=== PATIENT | female | born 1935 | race Caucasian/White ===

== ENCOUNTER 2022-09-29 09:27 | Inpatient (IN) | payer MEDICARE, SELFPAY ==
[2022-09-29] VITALS (12 sets, daily range): BP systolic 124–166; BP diastolic 75–108; PULSE 80–99; RESP 16–26; TEMP 36.9–38.1; O2SAT 93–100; BMI 24.7
--- NOTE | ~2022-09-29 | CT_ITS ---
EXAMINATION: CTA brain carotid DATE: 09/30/2022 16:45 INDICATION: Confusion and weakness TECHNIQUE: Computed tomographic angiography (CTA) of the head was performed without and with 100 mL O mnipaque-350 intravenous contrast. CTA of the neck was performed with intravenous contrast. The dose- length product was 1640.65 mGy-cm. Maximum intensity projection and volume rendered 3D-reconstruction s were created by the technologist on a separate workstation. Automated exposure control and iterativ e reconstruction technique were employed. COMPARISON: None. FINDINGS: HEAD CTA: There is no acute intraparenchymal hemorrhage. No evidence of mass lesion. No evidence of a cute infarction. There are areas of prior infarction in the right frontal, temporal, and parietal lob es. There is mild periventricular and subcortical hypodensity probably related to small vessel ischem ic disease. There is mild prominence of the sulci and ventricles related to cerebral atrophy. Intracr anial calcified cerebral atherosclerosis is noted. There are no extra-axial collections. There is no mass effect or midline shift. Changes in the globes are likely from ocular lens surgery. The visualiz ed sinuses and mastoid air cells are well aerated. There is no significant stenosis of the basilar artery or posterior cerebral arteries. There is no si gnificant stenosis of the intracranial internal carotid arteries or the anterior or left middle cereb ral arteries. There is mild to moderate stenosis of the right middle cerebral artery which may relate to prior infarct. The anterior communicating artery is normal. The right posterior communicating art [place] is hypoplastic. There is no aneurysm. NECK CTA: The thyroid gland is unremarkable. The submandibular and parotid glands are symmetric. Ther e is no lymphadenopathy. There are no masses identified. The airway is unremarkable. There is mild ce rvical spondylosis. 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 There is 0% stenosis of the proximal right internal carotid artery relative to normal distal artery l umen diameter (NASCET criteria). There is 0% stenosis of the proximal left internal carotid artery re lative to normal distal artery lumen diameter. IMPRESSION: 1. Areas of prior right-sided infarction without acute intracranial abnormality. Mild to moderate kassidy nosis of the right middle cerebral artery which may relate to prior infarct. 2. 0% stenosis of the proximal right internal carotid artery relative to normal distal artery lumen d iameter (NASCET criteria). 3. 0% stenosis of the proximal left internal carotid artery relative to normal distal artery lumen di ameter. 4. 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 Reviewed, dictated and finalized at location A. IMPRESSION: 1. Areas of prior right-sided infarction without acute intracranial abnormality . Mild to moderate stenosis of the right middle cerebral artery which may relat e to prior infarct. 2. 0% stenosis of the proximal right internal carotid artery relative to normal distal artery lumen diameter (NASCET criteria). 3. 0% stenosis of the proximal left internal carotid artery relative to normal distal artery lumen diameter. 4. 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
--- NOTE | ~2022-09-29 | XR_ITS ---
EXAMINATION: XR chest 1V portable INDICATION: Fever, COVID 19 TECHNIQUE: Portable AP chest at 1018 hours COMPARISON: None available FINDINGS: There are minimal airspace opacities of the lung bases. No pleural effusion or pneumothorax . The cardiomediastinal silhouette is normal. A cardiac monitoring device projects over the left hear t border. IMPRESSION: 1. Minimal bibasilar airspace opacity, consistent with atelectasis versus pneumonia. Reviewed, dictated and finalized at location L. IMPRESSION: 1. Minimal bibasilar airspace opacity, consistent with atelectasis versus pneum onia.
--- NOTE | 2022-09-29 09:32 | ECG_ITS ---
Measurements Intervals [place] Rate: 82 P: 27 UT: 163 QRS: -6 QRSD: 86 T: 29 QT: 395 QTc: 463 Interpretive Statements SINUS RHYTHM POSSIBLE LEFT ATRIAL ENLARGEMENT LEFT VENTRICULAR HYPERTROPHY AND ST-T CHANGE BORDERLINE ECG NO PREVIOUS ECG AVAILABLE FOR COMPARISON Electronically Signed On 09-29-2022 10:16:52 CDT by Chad Saldivar D.O.
--- NOTE | 2022-09-29 09:35 | ED.FEVER ---
HPI - Fever General Chief Complaint: Fever Stated Complaint: fever/ covid+ History of Present Illness HPI Narrative: Patient is an 87-year-old female presenting with a fever. Patient states that she and her recently moved into an assisted living facility. States that she had a fever last night so they tested her for COVID which came back positive. This morning and ambulance showed up and brought her here but she is unsure why. States that someone at the assisted living facility must of called. She denies any complaints. No headache, numbness or weakness, chest pain, lightheadedness, shortness of breath, cough, abdominal pain, nausea or vomiting, diarrhea, leg swelling, dysuria. States that she feels like she is in her normal state of health. Related Data Home Medications Medication Instructions Recorded Confirmed acetaminophen 325 mg capsule 650 mg PO Q4HWA PRN Pain 09/29/22 10/01/22 (Tylenol) amlodipine 2.5 mg tablet 2.5 mg PO DAILY 09/29/22 10/01/22 aspirin 81 mg capsule,delayed 81 mg PO DAILY 09/29/22 10/01/22 release atorvastatin 40 mg tablet 40 mg PO HS 09/29/22 10/01/22 cholecalciferol (vitamin D3) 50 1 mcg PO DAILY 09/29/22 10/01/22 mcg (2,000 unit) tablet citalopram 20 mg tablet 20 mg PO DAILY 09/29/22 10/01/22 clopidogrel 75 mg tablet (Plavix) 75 mg PO DAILY 09/29/22 10/01/22 fluorometholone 0.1 % eye 1 drp EACH EYE DAILY 09/29/22 10/01/22 drops,suspension hydralazine 10 mg tablet 10 mg PO PRN 09/29/22 10/01/22 levothyroxine 100 mcg tablet 100 mcg PO DAILY 09/30/22 10/01/22 lisinopril 10 mg tablet 10 mg PO DAILY 09/30/22 10/01/22 metoprolol tartrate 25 mg tablet 25 mg PO BID 09/30/22 10/01/22 ropinirole 0.25 mg tablet 0.25 mg PO DAILY 09/30/22 10/01/22 Allergies Allergy/AdvReac Type Severity Reaction Status Date / Time metronidazole [From Flagyl] Allergy Gastrointestinal Verified 09/29/22 09:39 Upset Review of Systems Review of Systems: All systems reviewed & are unremarkable except as noted in HPI and below PMFSH Past Medical History Medical History (Updated 10/21/22 @ 17:43 by Rosalinda Gavin MD) Depression with anxiety History of CVA (cerebrovascular accident) Hyperlipidemia Hypertension Hypothyroidism 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 with her . She has 3 children. 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 Lifelong nonsmoker. Code status full code Smoking status: Never smoker Alcohol intake: never Substance use: never Substance use type: does not use Lack of Transportation: No Lack of Food: Never True Current Housing: I Have Housing Concerned About Future Housing: No Difficulty Paying Gas/Electric Bills: No Difficulty Paying for Meds: No Currently Unemployed: No Education: High School Diploma/GED Difficulty w/ Childcare or Family Care: No Spiritual care concerns: No Exam Narrative: GENERAL: Elderly female sitting in bed, in no acute distress, pleasant and cooperative HEAD: Normocephalic, atraumatic. EYES: PERRLA and EOMI. ENT: Nares clear, no rhinorrhea or epistaxis. Mucous membranes moist. NECK: Supple. CHEST: Clear to auscultation. No respiratory distress. No wheezing or crackles appreciated HEART: Regular rate and rhythm. No murmur heard. Normal peripheral pulses. ABDOMEN: Soft, nontender, nondistended EXTREMITIES: Normal range of motion. No edema. SKIN: Warm, dry, no rash. NEURO: No focal deficits. Alert and oriented x3. PSYCH: Normal mood and affe
[2022-09-29] MEDS: SODIUM CHLORIDE 0.9% IV 1,000 ML 999 ML IV CONT (10:13)
[2022-09-29 10:20] LABS: Basophils Percent Auto 0.3 % (0.2-1.2); Eosinophils Percent Auto 0.5 % (0-4.4); Hemoglobin 10.8 g/dL (12.0-15.0); Immature Granulocyte Absolute 0.07 K/mm3 (0.00-0.031); Immature Granulocyte Percent A 1.9 % (0-0.5); Lymphocytes Absolute Auto 1.34 K/mm3 (0.9-3.2); Lymphocytes Percent Auto 35.8 % (18.3-44.2); Mean Corpuscular HGB Conc 32.7 g/dl (32-36); Mean Corpuscular Hemoglobin 29.3 pg (26-34); Mean Corpuscular Volume 89.4 fl (80-100); Monocytes Absolute Auto 0.5 K/mm3 (0.1-0.6); Monocytes Percent Auto 12.8 % (2.6-8.5); Neutrophils Absolute Auto 1.8 K/mm3 (1.3-6.7); Neutrophils Percent Auto 48.7 % (45.5-73.1); Platelet Count Result 178 k/mm3 (150-375); Red Blood Count 3.69 M/mm3 (4.2-5.4); White Blood Count 3.7 K/mm3 (4.5-10.0)
[2022-09-29 10:37] LABS: Anion Gap 3 mmol/L (8-16); Blood Urea Nitrogen 11 mg/dL (7-17); Calcium 8.5 mg/dL (8.4-10.2); Carbon Dioxide 30 mmol/L (22-30); Chloride 101 mmol/L (98-107); Estimated CRCL calculation 47 ml/min; Estimated Glomerular Filt Rate > 60; Glucose 101 mg/dL (65-110); Potassium 2.7 mmol/L (3.4-5.0); Sodium 134 mmol/L (137-145)
[2022-09-29] MEDS: POTASSIUM CHLORIDE 20 MEQ TABLET 40 MEQ PO (10:41)
[2022-09-29 11:00] LABS: Influenza A QL RT-PCR Negative (Negative); Influenza B QL RT-PCR Negative (Negative); SARS-CoV-2 RNA PCR Positive
[2022-09-29] MEDS: KCL 20 MEQ/SW 100 ML 100 ML 50 MEQ IVPB (11:09)
--- NOTE | 2022-09-29 13:39 | PC.NURSE ---
This RN spoke to An with [facility] and gave update/discussed POC of pt. Plan is for pt to return to NH following repeat BMP to re ck Potassium following PO intake and IV infusion of K.
[2022-09-29 15:23] LABS: Anion Gap 2 mmol/L (8-16); Blood Urea Nitrogen 10 mg/dL (7-17); Carbon Dioxide 31 mmol/L (22-30); Chloride 104 mmol/L (98-107); Estimated CRCL calculation 56 ml/min; Estimated Glomerular Filt Rate > 60; Glucose 96 mg/dL (65-110); Potassium 3.3 mmol/L (3.4-5.0); Sodium 137 mmol/L (137-145)
--- NOTE | 2022-09-29 17:21 | PC.NURSE ---
spoke to daughter [phone] (kyle) and gave update on pts mother status & POC - w/ pts permission
[2022-09-29] MEDS: ACETAMINOPHEN 500 MG TABLET 1000 MG PO (17:25)
--- NOTE | 2022-09-29 19:46 | ADMGEN ---
This patient, Fannie Vaz, was admitted to 3 [facility] Surg Room 302-01. Patient/family oriented to hospital policies and general routines including ID bracelet, bed and alarms, visiting hours, pain management, procedures, bathroom and other care routines, personal items, smoking policy, room service/diet, and visiting hours. Information on how to activate the Rapid Response Team has been discussed. Patient/Family are encouraged to report perceived risks to care and to ask questions if they do not understand what they are told or what they should do.
--- NOTE | 2022-09-29 20:34 | PM.IMHP ---
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 She had a fever last night and then tested positive for COVID. The patient has a history of CVA with left-sided affect causing the left upper extremity left lower extremity to be flaccid. The patient stated that somebody at this is still living facility called ambulance for her today. She denies any shortness of breath and is not on any oxygen. The patient feels weak. No complaints of chest pain or lightheadedness. The patient was going to be sent back home or back to the facility however the patient was not able to ambulate at that time and was too weak. H&H 10.8 and 33.0. Sodium was 134 now 137. Her potassium was 2.7 now 3.3. The patient was positive for COVID. Chest x-ray was read as minimal bibasilar airspace opacities consistent with atelectasis versus pneumonia. Patient was given IV fluids x1, potato and Tylenol in the emergency room. The patient typically takes potassium at home. The patient is being admitted to observation status on the date of service 09/29/2022. Review of Systems Review of Systems: All systems reviewed & are unremarkable except as noted in HPI and below Constitutional: Constitutional: Reports as per HPI and Reports no additional constitutional complaints Eyes: Eyes: Reports as per HPI and Reports no additional eye complaints ENT: Reports system reviewed and no additional complaints, except as documented and Reports Normal hearing present Cardiovascular: Cardiovascular: Reports no additional cardiovascular complaints Respiratory: Respiratory: Reports no additional respiratory complaints and Reports no additional respiratory complaints Gastrointestinal: Gastrointestinal: Reports as per HPI and Reports no additional gastrointestinal complaints Musculoskeletal: Musculoskeletal: Reports no additional musculoskeletal complaints Integumentary/Breasts: Skin/Breast: Reports system reviewed and no additional complaints, except as docu and Reports as per HPI Neurologic: Reports system reviewed and no additional complaints, except as documented, Reports as per HPI and Reports Normal hearing present Psychiatric: Psychiatric: Reports no additional psychiatric complaints and Reports as per HPI Endocrine: Endocrine: Reports no additional endocrine complaints Hematologic/Lymphatic: Hematologic/Lymphatic: Reports no additional hematologic/lymphatic complaints Allergic/Immunologic: Allergic/Immunologic: Reports no additional allergic/immunologic complaints [facility] Past Medical History Medical History (Updated 09/30/22 @ 01:11 by Ketty Doshi NP) Depression with anxiety History of CVA (cerebrovascular accident) Hyperlipidemia Hypertension Hypothyroidism 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 She has 3 children. 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 Lifelong nonsmoker. Code status full code Smoking status: Never smoker Alcohol intake: never Substance use: never Lack of Transportation: No Lack of Food: Never True Current Housing: I Have Housing Concerned About Future Housing: No Difficulty Paying Gas/Electric Bills: No Difficulty Paying for Meds: No Currently Unemployed: No Education: High School Diploma/GED Difficulty w/ Childcare or Family Care: No Spiritual care concerns: No Meds Home Medi
[2022-09-30] VITALS (8 sets, daily range): BP systolic 130–164; BP diastolic 68–95; PULSE 66–135; RESP 14–20; TEMP 36.5–37.4; O2SAT 91–96
[2022-09-30] MEDS: POTASSIUM CHLORIDE 20 MEQ PACKET (FOR LIQUID) PO (02:17)
[2022-09-30] MEDS: LEVOTHYROXINE SODIUM 100 MCG TABLET PO (06:20)
[2022-09-30 07:52] LABS: Basophils Percent Auto 0.2 % (0.2-1.2); Eosinophils Percent Auto 0.4 % (0-4.4); Hematocrit 36.3 % (37.0-47.0); Immature Granulocyte Absolute 0.19 K/mm3 (0.00-0.031); Immature Granulocyte Percent A 4.1 % (0-0.5); Lymphocytes Absolute Auto 0.92 K/mm3 (0.9-3.2); Lymphocytes Percent Auto 20.1 % (18.3-44.2); Mean Corpuscular HGB Conc 33.1 g/dl (32-36); Mean Corpuscular Hemoglobin 29.3 pg (26-34); Mean Corpuscular Volume 88.5 fl (80-100); Mean Platelet Volume 11.3 fl (7.4-10.4); Monocytes Absolute Auto 0.7 K/mm3 (0.1-0.6); Monocytes Percent Auto 14.4 % (2.6-8.5); Neutrophils Absolute Auto 2.8 K/mm3 (1.3-6.7); Neutrophils Percent Auto 60.8 % (45.5-73.1); Platelet Count Result 178 k/mm3 (150-375); White Blood Count 4.6 K/mm3 (4.5-10.0)
[2022-09-30 08:14] LABS: Alanine Aminotransferase 22 U/L (6-35); Alkaline Phosphatase 87 U/L (38-126); Anion Gap 9 mmol/L (8-16); Aspartate Amino Transferase 32 U/L (14-36); Blood Urea Nitrogen 9 mg/dL (7-17); Calcium 8.7 mg/dL (8.4-10.2); Carbon Dioxide 27 mmol/L (22-30); Chloride 98 mmol/L (98-107); Estimated CRCL calculation 56 ml/min; Estimated Glomerular Filt Rate > 60; Glucose 109 mg/dL (65-110); Lactate Dehydrogenase 224 U/L (120-246); Magnesium 1.7 mg/dL (1.6-2.3); Sodium 134 mmol/L (137-145)
--- NOTE | 2022-09-30 09:00 | P.PNIM_ITS ---
Progress Note: A&P Assessment and Plan (1) COVID-19: Code(s): U07.1 - COVID-19 Status: Acute Assessment and Plan: * Currently on room air * Complaints of weakness * Supportive care at this time. * PT OT has been ordered * Typically walks with a walker or cane. * Continue with Tylenol for fever or pain * Contact and droplet isolation (2) Hypertension: Code(s): I10 - Essential (primary) hypertension Status: Acute Assessment and Plan: * BP is 138/75 * Continue home amlodipine, hydralazine, lisinopril, metoprolol * Trend blood pressure * Adjust therapy as indicated (3) Hypothyroidism: Code(s): E03.9 - Hypothyroidism, unspecified Status: Acute Assessment and Plan: * TSH 5.960 T4 pending * Continue home levothyroxine 100mcg PO daily * Adjust therapy as indicated (4) Hypokalemia: Code(s): E87.6 - Hypokalemia Status: Acute Assessment and Plan: * K upon arrival is 2.7 * Currently 3.0 * Replace with IV and PO potassium * Continue to trend K * Adjust therapy as indicated (5) Hyperlipidemia: Code(s): E78.5 - Hyperlipidemia, unspecified Status: Acute Assessment and Plan: * Continue with atorvastatin (6) Depression with anxiety: Code(s): F41.8 - Other specified anxiety disorders Status: Acute Assessment and Plan: * Continue with Celexa (7) 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 * Patient typically walks with a cane or walker. * The patient has paralysis to her left upper and left lower extremity due to a past CVA. * Continue with aspirin and Plavix * Continue with atorvastatin (8) Acute metabolic encephalopathy: Code(s): G93.41 - Metabolic encephalopathy Status: Acute Assessment and Plan: * A&Ox1-2 * A&O x 4 at baseline * Weakness noted * Admits to visual hallucinations * Head CTA ordered * Continue to trend mental status * Mini mental status exam ordered Time Spent With Patient Time: 57 minutes Time with patient: Greater than 35 minutes Subjective Date/time seen: 09/30/22 09:00 Interval history: 09/30/22 0900 patient is lying in bed. Patient did state that she can walk. She also states she feels okay and that she feels like she always does. She stated that she also has been out of bed. She denies any chest pain, shortness a breath, nausea, vomiting, diarrhea or constipation. She does look to be a little weak and she is hallucinating a bed which probably is related to a delirium as she has not been home from what I understand for a while. Unsure of and unclear of her baseline. Will await for PT and OT to evaluate at this time. 09/29/22? 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 She had a fever last night and then tested positive for COVID.? The patient has a history of CVA with left-sided affect causing the left upp
--- NOTE | 2022-09-30 09:00 | PM.IMPN ---
Progress Note: A&P Assessment and Plan (1) COVID-19: Code(s): U07.1 - COVID-19 Status: Acute Assessment and Plan: Currently on room air Complaints of weakness Supportive care at this time. PT OT has been ordered Typically walks with a walker or cane. Continue with Tylenol for fever or pain Contact and droplet isolation (2) Hypertension: Code(s): I10 - Essential (primary) hypertension Status: Acute Assessment and Plan: BP is 138/75 Continue home amlodipine, hydralazine, lisinopril, metoprolol Trend blood pressure Adjust therapy as indicated (3) Hypothyroidism: Code(s): E03.9 - Hypothyroidism, unspecified Status: Acute Assessment and Plan: TSH 5.960 T4 pending Continue home levothyroxine 100mcg PO daily Adjust therapy as indicated (4) Hypokalemia: Code(s): E87.6 - Hypokalemia Status: Acute Assessment and Plan: K upon arrival is 2.7 Currently 3.0 Replace with IV and PO potassium Continue to trend K Adjust therapy as indicated (5) Hyperlipidemia: Code(s): E78.5 - Hyperlipidemia, unspecified Status: Acute Assessment and Plan: Continue with atorvastatin (6) Depression with anxiety: Code(s): F41.8 - Other specified anxiety disorders Status: Acute Assessment and Plan: Continue with Celexa (7) 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 Patient typically walks with a cane or walker. The patient has paralysis to her left upper and left lower extremity due to a past CVA. Continue with aspirin and Plavix Continue with atorvastatin (8) Acute metabolic encephalopathy: Code(s): G93.41 - Metabolic encephalopathy Status: Acute Assessment and Plan: A&Ox1-2 A&O x 4 at baseline Weakness noted Admits to visual hallucinations Head CTA ordered Continue to trend mental status Mini mental status exam ordered Time Spent With Patient Time: 57 minutes Time with patient: Greater than 35 minutes Subjective Date/time seen: 09/30/22 09:00 Interval history: 09/30/22 0900 patient is lying in bed. Patient did state that she can walk. She also states she feels okay and that she feels like she always does. She stated that she also has been out of bed. She denies any chest pain, shortness a breath, nausea, vomiting, diarrhea or constipation. She does look to be a little weak and she is hallucinating a bed which probably is related to a delirium as she has not been home from what I understand for a while. Unsure of and unclear of her baseline. Will await for PT and OT to evaluate at this time. 09/29/22? 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 She had a fever last night and then tested positive for COVID.? The patient has a history of CVA with left-sided affect causing the left upper extremity left lower extremity to be flaccid.? The patient stated that somebody at this is still living facility called ambulance for her today.? She denies any shortness of breath and is not on any oxygen.? The patient feels weak.? No complaints of chest pain or lightheadedness.? The patient was going to be sent back home or back to the facility however the patient was not able to ambulate at that time and was too weak.? H&H 10.8 and 33.0.? Sodium was 134 now 137.? Her potassium was 2.7 now 3.3.? The patient was positive for COVID.? Chest x-ray was read as minimal bibasilar airspace opacities consistent with atelectasis versus pneumonia.? Patient was given IV fluids x1, potato and Tyleno
[2022-09-30] MEDS: POTASSIUM CHLORIDE 20 MEQ TABLET 40 MEQ PO (09:16)
[2022-09-30] MEDS: POTASSIUM CHLORIDE INJ 40 MEQ in SODIUM CHLORIDE 0.9% IV 500 ML 130 MEQ IVPB (09:16)
[2022-09-30] MEDS: amLODIPine BESYLATE 2.5 MG TABLET PO (09:17)
[2022-09-30] MEDS: ASPIRIN 81 MG ENTERIC TABLET PO (09:17)
[2022-09-30] MEDS: rOPINIRole HCL 0.25 MG TABLET PO (09:17)
[2022-09-30] MEDS: FLUOROMETHOLONE 0.1% OP SUSP 5 ML BTL 1 DROP EACH EYE (09:17)
[2022-09-30] MEDS: METOPROLOL TARTRATE 25 MG TABLET PO ×2 (09:17→20:05)
[2022-09-30] MEDS: CLOPIDOGREL BISULFATE 75 MG TABLET PO (09:17)
[2022-09-30] MEDS: CHOLECALCIFEROL 1,000 UNITS TABLET 2000 UNITS PO (09:17)
[2022-09-30] MEDS: lisinopriL 10 MG TABLET PO (09:17)
[2022-09-30] MEDS: CITALOPRAM HYDROBROMIDE 20 MG TABLET PO (09:17)
[2022-09-30 15:28] LABS: Free T4 Free Thyroxine Reflex 1.23 ng/dL (0.78-2.19)
[2022-09-30 16:56] LABS: Total Triiodothyronine (T3) 0.75 NG/ML (0.97-1.69)
[2022-09-30] MEDS: ATORVASTATIN 40 MG TABLET PO (20:03)
[2022-10-01 04:00] VITALS: BP 146/71; PULSE 72; RESP 14; TEMP 36.5; O2SAT 92
[2022-10-01] MEDS: LEVOTHYROXINE SODIUM 100 MCG TABLET PO (06:17)
[2022-10-01 08:00] VITALS: BP 146/83; PULSE 78; RESP 20; TEMP 36.5; O2SAT 96
[2022-10-01 09:27] LABS: Basophils Percent Auto 0.2 % (0.2-1.2); Eosinophils Percent Auto 0.8 % (0-4.4); Hematocrit 33.2 % (37.0-47.0); Hemoglobin 10.6 g/dL (12.0-15.0); Immature Granulocyte Absolute 0.06 K/mm3 (0.00-0.031); Immature Granulocyte Percent A 1.3 % (0-0.5); Lymphocytes Percent Auto 25.2 % (18.3-44.2); Mean Corpuscular HGB Conc 31.9 g/dl (32-36); Mean Corpuscular Volume 87.8 fl (80-100); Mean Platelet Volume 11.3 fl (7.4-10.4); Monocytes Absolute Auto 0.9 K/mm3 (0.1-0.6); Monocytes Percent Auto 18.4 % (2.6-8.5); Neutrophils Absolute Auto 2.6 K/mm3 (1.3-6.7); Neutrophils Percent Auto 54.1 % (45.5-73.1); Platelet Count Result 180 k/mm3 (150-375); Red Blood Count 3.78 M/mm3 (4.2-5.4); Red Cell Distribution Width 14.1 % (11.5-14.5); White Blood Count 4.8 K/mm3 (4.5-10.0)
[2022-10-01] MEDS: CHOLECALCIFEROL 1,000 UNITS TABLET 2000 UNITS PO (09:36)
[2022-10-01] MEDS: rOPINIRole HCL 0.25 MG TABLET PO (09:36)
[2022-10-01 09:37] VITALS: PULSE 78
[2022-10-01] MEDS: lisinopriL 10 MG TABLET PO (09:37)
[2022-10-01] MEDS: CITALOPRAM HYDROBROMIDE 20 MG TABLET PO (09:37)
[2022-10-01] MEDS: amLODIPine BESYLATE 2.5 MG TABLET PO (09:37)
[2022-10-01] MEDS: ENOXAPARIN 40 MG/0.4 ML SYRINGE SUB-Q (09:37)
[2022-10-01] MEDS: CLOPIDOGREL BISULFATE 75 MG TABLET PO (09:37)
[2022-10-01] MEDS: ASPIRIN 81 MG ENTERIC TABLET PO (09:37)
[2022-10-01] MEDS: METOPROLOL TARTRATE 25 MG TABLET PO (09:37)
[2022-10-01] MEDS: FLUOROMETHOLONE 0.1% OP SUSP 5 ML BTL 1 DROP EACH EYE (09:37)
[2022-10-01 09:42] LABS: Alanine Aminotransferase 20 U/L (6-35); Albumin Level 3.5 g/dL (3.5-5.1); Alkaline Phosphatase 71 U/L (38-126); Anion Gap 6 mmol/L (8-16); Aspartate Amino Transferase 32 U/L (14-36); Bilirubin,Total 0.9 mg/dL (0.2-1.3); Blood Urea Nitrogen 14 mg/dL (7-17); Calcium 8.6 mg/dL (8.4-10.2); Carbon Dioxide 27 mmol/L (22-30); Chloride 101 mmol/L (98-107); Estimated CRCL calculation 47 ml/min; Estimated Glomerular Filt Rate > 60; Glucose 90 mg/dL (65-110); Potassium 3.4 mmol/L (3.4-5.0); Sodium 134 mmol/L (137-145)
--- NOTE | 2022-10-01 10:57 | P.DS_ITS ---
DS: Admitting Diagnosis Discharge Date 10/01/2022 1058 Admitting Diagnosis Increased weakness, COVID DS: Discharge Diagnosis Discharge Diagnosis (1) COVID-19: Code(s): U07.1 - COVID-19 Status: Acute Assessment and Plan: * Currently on room air * Complaints of weakness * Supportive care at this time. * PT OT has been ordered * Typically walks with a walker or cane. * Continue with Tylenol for fever or pain * Contact and droplet isolation (2) Hypertension: Code(s): I10 - Essential (primary) hypertension Status: Acute Assessment and Plan: * BP is 146/83 * Continue home amlodipine, hydralazine, lisinopril, metoprolol * Trend blood pressure * Adjust therapy as indicated (3) Hypothyroidism: Code(s): E03.9 - Hypothyroidism, unspecified Status: Acute Assessment and Plan: * TSH 5.960 T4 1.23 * Continue home levothyroxine 100mcg PO daily * Adjust therapy as indicated (4) Hypokalemia: Code(s): E87.6 - Hypokalemia Status: Acute Assessment and Plan: * K upon arrival is 2.7 * Currently 3.4 * Replace with IV and PO potassium * Continue to trend K * Adjust therapy as indicated (5) Hyperlipidemia: Code(s): E78.5 - Hyperlipidemia, unspecified Status: Acute Assessment and Plan: * Continue with atorvastatin (6) Depression with anxiety: Code(s): F41.8 - Other specified anxiety disorders Status: Acute Assessment and Plan: * Continue with Celexa (7) 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 * Patient typically walks with a cane or walker. * The patient has paralysis to her left upper and left lower extremity due to a past CVA. * Continue with aspirin and Plavix * Continue with atorvastatin (8) Acute metabolic encephalopathy: Code(s): G93.41 - Metabolic encephalopathy Status: Acute Assessment and Plan: * A&Ox1-2 * A&O x 4 at baseline * Weakness noted * Admits to visual hallucinations * Head CTA old infarts, 0% stenosis bilaterally * Continue to trend mental status * Mini mental status exam ordered DS: Summary Hospital Course Hospital Course: Patient is a 7-year-old female with a past medical history of CVA, hypertension, hypothyroidism, hyperlipidemia who presented to the ED with complaints of fever. Patient was tested for COVID and did test positive. Patient did not require any oxygen however it was noted that her potassium was 2.7 upon arrival. Patient was given replacement p.o. and IV currently potassium is 3.4 and has been given more potassium supplements. Patient currently remains stable on room air and denies any current chest pain, shortness a breath, nausea, vomiting, diarrhea or constipation. Patient did have notable hallucinations however appears to be more of a delirium. CT head and neck was negative for any acute abnormalities. Sodium is also been stable. Patient currently is stable for discharge at this time. P
--- NOTE | 2022-10-01 10:57 | PM.DS ---
DS: Admitting Diagnosis Discharge Date 10/01/2022 1058 Admitting Diagnosis Increased weakness, COVID DS: Discharge Diagnosis Discharge Diagnosis (1) COVID-19: Code(s): U07.1 - COVID-19 Status: Acute Assessment and Plan: Currently on room air Complaints of weakness Supportive care at this time. PT OT has been ordered Typically walks with a walker or cane. Continue with Tylenol for fever or pain Contact and droplet isolation (2) Hypertension: Code(s): I10 - Essential (primary) hypertension Status: Acute Assessment and Plan: BP is 146/83 Continue home amlodipine, hydralazine, lisinopril, metoprolol Trend blood pressure Adjust therapy as indicated (3) Hypothyroidism: Code(s): E03.9 - Hypothyroidism, unspecified Status: Acute Assessment and Plan: TSH 5.960 T4 1.23 Continue home levothyroxine 100mcg PO daily Adjust therapy as indicated (4) Hypokalemia: Code(s): E87.6 - Hypokalemia Status: Acute Assessment and Plan: K upon arrival is 2.7 Currently 3.4 Replace with IV and PO potassium Continue to trend K Adjust therapy as indicated (5) Hyperlipidemia: Code(s): E78.5 - Hyperlipidemia, unspecified Status: Acute Assessment and Plan: Continue with atorvastatin (6) Depression with anxiety: Code(s): F41.8 - Other specified anxiety disorders Status: Acute Assessment and Plan: Continue with Celexa (7) 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 Patient typically walks with a cane or walker. The patient has paralysis to her left upper and left lower extremity due to a past CVA. Continue with aspirin and Plavix Continue with atorvastatin (8) Acute metabolic encephalopathy: Code(s): G93.41 - Metabolic encephalopathy Status: Acute Assessment and Plan: A&Ox1-2 A&O x 4 at baseline Weakness noted Admits to visual hallucinations Head CTA old infarts, 0% stenosis bilaterally Continue to trend mental status Mini mental status exam ordered DS: Summary Hospital Course Hospital Course: Patient is a 7-year-old female with a past medical history of CVA, hypertension, hypothyroidism, hyperlipidemia who presented to the ED with complaints of fever. Patient was tested for COVID and did test positive. Patient did not require any oxygen however it was noted that her potassium was 2.7 upon arrival. Patient was given replacement p.o. and IV currently potassium is 3.4 and has been given more potassium supplements. Patient currently remains stable on room air and denies any current chest pain, shortness a breath, nausea, vomiting, diarrhea or constipation. Patient did have notable hallucinations however appears to be more of a delirium. CT head and neck was negative for any acute abnormalities. Sodium is also been stable. Patient currently is stable for discharge at this time. Patient will be discharging to [facility] bed for further strengthening and PT and OT. Patient denies any current needs and feels about her normal. She did know where she was at and she did know where she came from along with her name. She did not know the year. Vital signs and labs are stable for discharge at this time Status at Discharge Functional status at discharge: uses cane/walker Overall status at discharge: patient is progressing back to baseline Time Spent with Patient Time attestation: Total time spent providing and/or coordinating discharge services: 48 minutes Time spent: Greater than 30 minutes Specific discharge activities: Diagnostic sarwat
[2022-10-01 11:41] VITALS: BP 139/64; PULSE 69; RESP 16; TEMP 36.4; O2SAT 95
[2022-10-01] MEDS: POTASSIUM CHLORIDE 20 MEQ TABLET 40 MEQ PO (11:46)
== END 2022-10-01 15:06 | disposition swing bed (61) | DRG 177 ==
LOC: ANHED 15:35 → ANH3MEDSUR 17:54
PROVIDERS: Nurse Practitioner; Admitting Provider Chiropractor; Emergency Provider Emergency Medicine; Visit Provider Nurse Practitioner
DX: U07.1 COVID-19 (principal); G93.41 Metabolic encephalopathy; I10 Essential (primary) hypertension; E03.9 Hypothyroidism, unspecified; E87.6 Hypokalemia; E78.5 Hyperlipidemia, unspecified; F41.8 Other specified anxiety disorders; I69.364 Other paralytic syndrome following cerebral infarction affecting left non-dominant side
CPT/HCPCS: 36415; 70496; 70498; 71045; 80048; 80053; 83605; 83615; 83735; 84439; 84443; 84480; 85025; 87636; 93005; 96361; 96365; 96366; 96375; 97162; 97166; 99285; A9270; G0378; J1650; J3480; J7030; J7040; Q9967

== ENCOUNTER 2022-10-01 16:02 | Inpatient (IN) | payer MEDICARE, SELFPAY ==
--- NOTE | ~2022-10-01 | XR_ITS ---
EXAMINATION: XR chest 1V portable DATE: 10/04/2022 09:23 INDICATION: Altered mental status. TECHNIQUE: A single frontal view of the chest was obtained. COMPARISON: Chest single view 09/29/2022, CTA neck 09/30/2022 FINDINGS: The patient is rotated to her left. Calcified pulmonary nodules and calcified hilar lymph n odes are consistent with old granulomatous disease. No pleural effusion or pneumothorax. The heart si ze is normal. 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 There is an electronic implant in left anterior chest wall. IMPRESSION: 1. 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 Reviewed, dictated and finalized at location A. IMPRESSION: 1. 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
[2022-10-01 16:05] VITALS: BP 148/76; PULSE 69; RESP 16; TEMP 35.9; O2SAT 95; BMI 25.2
--- NOTE | 2022-10-01 16:05 | ADMGEN ---
This patient, Fannie Vaz, was admitted to 2nd Floor Room 204-2 as a skilled swing bed related to covid/weakness. Patient/family oriented to hospital policies and general routines including ID bracelet, bed and alarms, visiting hours, pain management, procedures, bathroom and other care routines, personal items, smoking policy, room service/diet, and visiting hours. Information on how to activate the Rapid Response Team has been discussed. Patient/Family are encouraged to report perceived risks to care and to ask questions if they do not understand what they are told or what they should do.
--- NOTE | 2022-10-01 20:01 | PC.NURSE ---
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 Roll of toilet paper soaked with soda. Table wiped down. Patient ambulated to bathroom using walker, gait belt, and 1 assist. Patient urinated and assisted to bed. SR up x2, call light and belongins within reach. Bed alarm on. Patient reminded to call for assist.
[2022-10-01 20:38] VITALS: PULSE 75
[2022-10-01] MEDS: traZODone HCL 50 MG TABLET PO (20:38)
[2022-10-01] MEDS: METOPROLOL TARTRATE 25 MG TABLET PO (20:38)
[2022-10-01] MEDS: ATORVASTATIN 40 MG TABLET PO (20:38)
[2022-10-01 23:08] VITALS: BP 156/75; PULSE 74; RESP 15; TEMP 36.4; O2SAT 94
[2022-10-02] MEDS: LEVOTHYROXINE SODIUM 100 MCG TABLET PO (06:32)
--- NOTE | 2022-10-02 06:38 | PM.IMHP ---
H&P: HPI History of Present Illness Date/Time: 10/02/22 06:38 Chief Complaint: weakness Narrative: this is a 87-year-old female that presented to [facility] due to a fever. Patient tested positive for COVID. It was determined by Physical therapy/Occupational therapy did patient will benefit from rehab. 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 She has 3 children. 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 Lifelong nonsmoker. Code status full code Smoking status: Never smoker Alcohol intake: never Substance use: never Substance use type: does not use Lack of Transportation: No Lack of Food: Never True Current Housing: I Have Housing Concerned About Future Housing: No Difficulty Paying Gas/Electric Bills: No Difficulty Paying for Meds: No Currently Unemployed: No Education: High School Diploma/GED Difficulty w/ Childcare or Family Care: No Spiritual care concerns: No Meds Home Medications and Allergies Home Medications Medication Instructions Recorded Confirmed Type acetaminophen 325 mg capsule 650 mg PO Q4HWA PRN Pain 09/29/22 10/01/22 History (Tylenol) amlodipine 2.5 mg tablet 2.5 mg PO DAILY 09/29/22 10/01/22 History aspirin 81 mg capsule,delayed 81 mg PO DAILY 09/29/22 10/01/22 History release atorvastatin 40 mg tablet 40 mg PO HS 09/29/22 10/01/22 History cholecalciferol (vitamin D3) 50 1 mcg PO DAILY 09/29/22 10/01/22 History mcg (2,000 unit) tablet citalopram 20 mg tablet 20 mg PO DAILY 09/29/22 10/01/22 History clopidogrel 75 mg tablet (Plavix) 75 mg PO DAILY 09/29/22 10/01/22 History fluorometholone 0.1 % eye 1 drp EACH EYE DAILY 09/29/22 10/01/22 History drops,suspension hydralazine 10 mg tablet 10 mg PO PRN 09/29/22 10/01/22 History levothyroxine 100 mcg tablet 100 mcg PO DAILY 09/30/22 10/01/22 History lisinopril 10 mg tablet 10 mg PO DAILY 09/30/22 10/01/22 History metoprolol tartrate 25 mg tablet 25 mg PO BID 09/30/22 10/01/22 History ropinirole 0.25 mg tablet 0.25 mg PO DAILY 09/30/22 10/01/22 History potassium chloride 20 mEq 20 meq PO DAILY #30 tabs 10/01/22 10/01/22 Rx tablet,extended release Allergies Allergy/AdvReac Type Severity Reaction Status Date / Time metronidazole [From Flagyl] Allergy Gastrointestinal Verified 09/29/22 09:39 Upset Vital Signs Vital Signs - 24 hr 10/01/22 16:05 10/01/22 16:05 10/01/22 20:38 Temperature 35.9 C L Pulse Rate 69 69 75 Respiratory Rate 16 16 Blood Pressure 148/76 H Pulse Oximetry 95 95 Oxygen Delivery Room Air Room Air 10/01/22 23:08 Temperature 36.4 C Pulse Rate 74 Respiratory Rate 15 Blood Pressure 156/75 H Pulse Oximetry 94 Oxygen Delivery Room Air Exam Narrative: GENERAL: frail elderly female, in no apparent distress. HEAD: normocephalic, atraumatic. EYES: PERRL. Sclera clear/white. Vision is grossly intact. EARS: External ears normal, auditory canals clear and without drainage, TMs normal without perforation. Hearing grossly intact. NOSE: External nose normal with no obvious nasal discharge, nares without redness, no rhinorrhea. THROAT: Mucous mem
[2022-10-02 08:30] VITALS: BP 112/64; PULSE 67; RESP 18; TEMP 35.5; O2SAT 94
[2022-10-02] MEDS: CITALOPRAM HYDROBROMIDE 20 MG TABLET PO (09:06)
[2022-10-02] MEDS: POTASSIUM CHLORIDE 20 MEQ TABLET PO (09:06)
[2022-10-02] MEDS: rOPINIRole HCL 0.25 MG TABLET PO (09:06)
[2022-10-02 09:07] VITALS: PULSE 67
[2022-10-02] MEDS: METOPROLOL TARTRATE 25 MG TABLET PO ×2 (09:07→21:16)
[2022-10-02] MEDS: ASPIRIN 81 MG ENTERIC TABLET PO (09:07)
[2022-10-02] MEDS: lisinopriL 10 MG TABLET PO (09:07)
[2022-10-02] MEDS: CLOPIDOGREL BISULFATE 75 MG TABLET PO (09:07)
[2022-10-02] MEDS: CHOLECALCIFEROL 1,000 UNITS TABLET 2000 UNITS PO (09:07)
[2022-10-02] MEDS: amLODIPine BESYLATE 2.5 MG TABLET PO (09:08)
[2022-10-02 16:40] VITALS: BP 123/65; PULSE 67; RESP 16; TEMP 36.5; O2SAT 94
[2022-10-02 21:16] VITALS: PULSE 65
[2022-10-02] MEDS: ATORVASTATIN 40 MG TABLET PO (21:16)
[2022-10-02] MEDS: traZODone HCL 50 MG TABLET PO (21:16)
[2022-10-02 23:02] VITALS: BP 134/75; PULSE 63; RESP 15; TEMP 36.3; O2SAT 95
[2022-10-03] MEDS: LEVOTHYROXINE SODIUM 100 MCG TABLET PO (05:42)
[2022-10-03 08:00] VITALS: BP 161/85; PULSE 67; RESP 14; TEMP 36.2; O2SAT 95
[2022-10-03] MEDS: CHOLECALCIFEROL 1,000 UNITS TABLET 2000 UNITS PO (09:20)
[2022-10-03 09:21] VITALS: PULSE 76
[2022-10-03] MEDS: lisinopriL 10 MG TABLET PO (09:21)
[2022-10-03] MEDS: amLODIPine BESYLATE 2.5 MG TABLET PO (09:21)
[2022-10-03] MEDS: METOPROLOL TARTRATE 25 MG TABLET PO ×2 (09:21→20:47)
[2022-10-03] MEDS: ASPIRIN 81 MG ENTERIC TABLET PO (09:21)
[2022-10-03] MEDS: CLOPIDOGREL BISULFATE 75 MG TABLET PO (09:22)
[2022-10-03] MEDS: POTASSIUM CHLORIDE 20 MEQ TABLET PO (09:22)
[2022-10-03] MEDS: rOPINIRole HCL 0.25 MG TABLET PO (09:22)
[2022-10-03] MEDS: CITALOPRAM HYDROBROMIDE 20 MG TABLET PO (09:22)
--- NOTE | 2022-10-03 13:20 | PC.NURSE ---
Pt is total lift/transfer. Her left leg and arm are flacid , non weight bearing. She has no balance. It took 2 people and a gait belt to stand and pivot her on to the BSC and then to the chair.
[2022-10-03 16:00] VITALS: BP 155/72; PULSE 72; RESP 18; TEMP 36.4; O2SAT 96
--- NOTE | 2022-10-03 18:17 | PC.NURSE ---
patient experiencing some confusion. Appeared to think she was still at assisted living
[2022-10-03 20:47] VITALS: PULSE 65
[2022-10-03] MEDS: traZODone HCL 50 MG TABLET PO (20:47)
[2022-10-03] MEDS: ATORVASTATIN 40 MG TABLET PO (20:47)
[2022-10-04] VITALS: BP 146/70; PULSE 70; RESP 16; TEMP 36.4; O2SAT 95
[2022-10-04] MEDS: LEVOTHYROXINE SODIUM 100 MCG TABLET PO (06:38)
[2022-10-04 08:00] VITALS: BP 154/68; PULSE 74; RESP 16; TEMP 36.6; O2SAT 96
[2022-10-04 09:30] LABS: Appearance Urine Slightly Cloudy (Clear); Bilirubin Urine Negative (Negative); Blood Urine Negative (Negative); Color Urine Light Yellow (Yellow); Glucose Urine UA Negative (Negative); Ketones Urine Negative (Negative); Leukocyte Esterase Ur Trace LEU/UL (Negative); Nitrate Urine Negative (Negative); Protein Urine Negative (Negative); Specific Grav Ur 1.015 (1.010-1.020)
[2022-10-04 09:42] LABS: Add Urine Microscopic? YES; Amorphous Sediment Urine Moderate; Bacteria Urine 3+ /hpf; RBC Urine None seen /hpf (0-2); Squamous Epithelial Cell Urine Few /hpf (Few)
[2022-10-04] MEDS: rOPINIRole HCL 0.25 MG TABLET PO (09:53)
[2022-10-04 09:54] VITALS: PULSE 74
[2022-10-04] MEDS: METOPROLOL TARTRATE 25 MG TABLET PO ×2 (09:54→21:16)
[2022-10-04] MEDS: ASPIRIN 81 MG ENTERIC TABLET PO (09:55)
[2022-10-04] MEDS: CLOPIDOGREL BISULFATE 75 MG TABLET PO (09:56)
[2022-10-04] MEDS: amLODIPine BESYLATE 2.5 MG TABLET PO (09:56)
[2022-10-04] MEDS: CHOLECALCIFEROL 1,000 UNITS TABLET 2000 UNITS PO (09:56)
[2022-10-04] MEDS: CITALOPRAM HYDROBROMIDE 20 MG TABLET PO (09:56)
[2022-10-04] MEDS: POTASSIUM CHLORIDE 20 MEQ TABLET PO (09:56)
[2022-10-04] MEDS: lisinopriL 10 MG TABLET PO (09:57)
--- NOTE | 2022-10-04 11:17 | P.PNCROSS_ITS ---
Event Note Event Note Event Note: received reports of confusion UA completed indicate leukocytes and bacteria wi ll be treated with Cipro for urinary tract infection culture pending chest x-ray no new findings
[2022-10-04] MEDS: CIPROFLOXACIN 500 MG TAB PO ×2 (12:47→21:16)
[2022-10-04 16:00] VITALS: BP 137/82; PULSE 72; RESP 16; TEMP 36.6; O2SAT 95
[2022-10-04 21:16] VITALS: PULSE 69
[2022-10-04] MEDS: ATORVASTATIN 40 MG TABLET PO (21:16)
[2022-10-04] MEDS: traZODone HCL 50 MG TABLET PO (21:17)
[2022-10-04 21:51] VITALS: BP 164/93; PULSE 75; RESP 16; TEMP 37.1; O2SAT 96
[2022-10-04] MEDS: hydrALAZINE 5 MG TABLET PO (21:51)
[2022-10-05] VITALS: BP 114/62; PULSE 70; RESP 16; TEMP 36.8; O2SAT 97
[2022-10-05 05:24] LABS: Alanine Aminotransferase 18 U/L (14-59); Albumin Level 2.7 g/dL (3.4-5.0); Alkaline Phosphatase 64 U/L (46-116); Anion Gap 6 mmol/L (8-16); Aspartate Amino Transferase 15 U/L (15-37); Bilirubin,Total 0.6 mg/dL (0.00-1.00); Blood Urea Nitrogen 11 mg/dL (7-18); Calcium 8.8 mg/dL (8.5-10.1); Carbon Dioxide 31 mmol/L (21-32); Chloride 105 mmol/L (98-108); Estimated CRCL calculation 39 ml/min; Estimated Glomerular Filt Rate > 60; Glucose 96 mg/dL (70-99); Osmolality Calculated 293 mOsm/kg (285-295); Potassium 3.6 mmol/L (3.5-5.1); Sodium 142 mmol/L (136-145); Total Protein 6.4 g/dL (6.4-8.2)
[2022-10-05] MEDS: LEVOTHYROXINE SODIUM 100 MCG TABLET PO (06:30)
[2022-10-05 08:00] VITALS: BP 155/71; PULSE 68; RESP 16; TEMP 36.3; O2SAT 97
[2022-10-05] MEDS: CHOLECALCIFEROL 1,000 UNITS TABLET 2000 UNITS PO (09:52)
[2022-10-05 09:53] VITALS: PULSE 68
[2022-10-05] MEDS: amLODIPine BESYLATE 2.5 MG TABLET PO (09:53)
[2022-10-05] MEDS: POTASSIUM CHLORIDE 20 MEQ TABLET PO (09:53)
[2022-10-05] MEDS: ASPIRIN 81 MG ENTERIC TABLET PO (09:53)
[2022-10-05] MEDS: METOPROLOL TARTRATE 25 MG TABLET PO ×2 (09:53→20:21)
[2022-10-05] MEDS: lisinopriL 10 MG TABLET PO (09:53)
[2022-10-05] MEDS: rOPINIRole HCL 0.25 MG TABLET PO (09:54)
[2022-10-05] MEDS: CIPROFLOXACIN 500 MG TAB PO ×2 (09:54→20:21)
[2022-10-05] MEDS: CLOPIDOGREL BISULFATE 75 MG TABLET PO (09:54)
[2022-10-05] MEDS: CITALOPRAM HYDROBROMIDE 20 MG TABLET PO (09:55)
[2022-10-05 16:00] VITALS: BP 158/84; PULSE 84; RESP 18; TEMP 36.6; O2SAT 95
[2022-10-05 20:21] VITALS: PULSE 61
[2022-10-05] MEDS: traZODone HCL 50 MG TABLET PO (20:21)
[2022-10-05] MEDS: ATORVASTATIN 40 MG TABLET PO (20:21)
[2022-10-05] MEDS: ACETAMINOPHEN 325 MG TABLET 650 MG PO (20:21)
[2022-10-05 23:13] VITALS: BP 129/72; PULSE 66; RESP 15; TEMP 36.2; O2SAT 96
--- NOTE | 2022-10-06 04:19 | PC.NURSE ---
Pt had moment of confusion thinking she was at home. This RN reoriented the pt. Pt requested help w/calling her on her cellphone. Assistance provided. Call light w/in reach; side railsx3; night light on on; and bed in lowest position for pt safety.
[2022-10-06] MEDS: LEVOTHYROXINE SODIUM 100 MCG TABLET PO (05:31)
[2022-10-06 08:00] VITALS: BP 132/76; PULSE 68; RESP 17; TEMP 36.6; O2SAT 95
[2022-10-06] MEDS: CIPROFLOXACIN 500 MG TAB PO ×2 (10:19→20:59)
[2022-10-06] MEDS: lisinopriL 10 MG TABLET PO (10:19)
[2022-10-06] MEDS: amLODIPine BESYLATE 2.5 MG TABLET PO (10:19)
[2022-10-06] MEDS: ASPIRIN 81 MG ENTERIC TABLET PO (10:19)
[2022-10-06] MEDS: CLOPIDOGREL BISULFATE 75 MG TABLET PO (10:19)
[2022-10-06] MEDS: CHOLECALCIFEROL 1,000 UNITS TABLET 2000 UNITS PO (10:19)
[2022-10-06 10:20] VITALS: PULSE 68
[2022-10-06] MEDS: rOPINIRole HCL 0.25 MG TABLET PO (10:20)
[2022-10-06] MEDS: POTASSIUM CHLORIDE 20 MEQ TABLET PO (10:20)
[2022-10-06] MEDS: METOPROLOL TARTRATE 25 MG TABLET PO ×2 (10:20→21:00)
[2022-10-06] MEDS: CITALOPRAM HYDROBROMIDE 20 MG TABLET PO (10:21)
[2022-10-06 16:00] VITALS: BP 128/74; PULSE 74; RESP 18; TEMP 36.3; O2SAT 96
[2022-10-06] MEDS: traZODone HCL 50 MG TABLET PO (20:59)
[2022-10-06 21:00] VITALS: PULSE 67
[2022-10-06] MEDS: ATORVASTATIN 40 MG TABLET PO (21:00)
[2022-10-06 23:09] VITALS: BP 141/71; PULSE 74; RESP 17; TEMP 36.3; O2SAT 97
[2022-10-07] MEDS: LEVOTHYROXINE SODIUM 100 MCG TABLET PO (06:14)
[2022-10-07 08:00] VITALS: BP 124/68; PULSE 67; RESP 14; TEMP 36; O2SAT 95
[2022-10-07 09:12] VITALS: PULSE 65
[2022-10-07] MEDS: METOPROLOL TARTRATE 25 MG TABLET PO ×2 (09:12→20:45)
[2022-10-07] MEDS: CHOLECALCIFEROL 1,000 UNITS TABLET 2000 UNITS PO (09:12)
[2022-10-07] MEDS: CLOPIDOGREL BISULFATE 75 MG TABLET PO (09:12)
[2022-10-07] MEDS: POTASSIUM CHLORIDE 20 MEQ TABLET PO (09:13)
[2022-10-07] MEDS: CITALOPRAM HYDROBROMIDE 20 MG TABLET PO (09:13)
[2022-10-07] MEDS: lisinopriL 10 MG TABLET PO (09:13)
[2022-10-07] MEDS: CIPROFLOXACIN 500 MG TAB PO ×2 (09:13→20:42)
[2022-10-07] MEDS: amLODIPine BESYLATE 2.5 MG TABLET PO (09:13)
[2022-10-07] MEDS: rOPINIRole HCL 0.25 MG TABLET PO (09:14)
[2022-10-07] MEDS: ASPIRIN 81 MG ENTERIC TABLET PO (09:14)
[2022-10-07 16:40] VITALS: BP 141/72; PULSE 78; RESP 16; TEMP 36.1; O2SAT 95
[2022-10-07] MEDS: ACETAMINOPHEN 325 MG TABLET 650 MG PO (20:43)
[2022-10-07] MEDS: ATORVASTATIN 40 MG TABLET PO (20:43)
[2022-10-07] MEDS: traZODone HCL 50 MG TABLET PO (20:45)
[2022-10-07 23:50] VITALS: BP 109/61; PULSE 69; RESP 16; TEMP 36.4; O2SAT 95
[2022-10-08] MEDS: LEVOTHYROXINE SODIUM 100 MCG TABLET PO (06:03)
[2022-10-08 08:00] VITALS: BP 146/85; PULSE 69; RESP 16; TEMP 36.3; O2SAT 96
[2022-10-08] MEDS: amLODIPine BESYLATE 2.5 MG TABLET PO (08:34)
[2022-10-08] MEDS: CHOLECALCIFEROL 1,000 UNITS TABLET 2000 UNITS PO (08:35)
[2022-10-08 08:36] VITALS: PULSE 69
[2022-10-08] MEDS: POTASSIUM CHLORIDE 20 MEQ TABLET PO (08:36)
[2022-10-08] MEDS: METOPROLOL TARTRATE 25 MG TABLET PO ×2 (08:36→20:48)
[2022-10-08] MEDS: rOPINIRole HCL 0.25 MG TABLET PO (08:36)
[2022-10-08] MEDS: ASPIRIN 81 MG ENTERIC TABLET PO (08:37)
[2022-10-08] MEDS: CITALOPRAM HYDROBROMIDE 20 MG TABLET PO (08:37)
[2022-10-08] MEDS: lisinopriL 10 MG TABLET PO (08:37)
[2022-10-08] MEDS: CLOPIDOGREL BISULFATE 75 MG TABLET PO (08:37)
[2022-10-08] MEDS: AMOXICILLIN 500 MG CAPSULE 1000 MG PO ×2 (08:45→20:47)
--- NOTE | 2022-10-08 11:15 | PM.IMPN ---
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 continue lisinopril Continue metoprolol Monitor vital signs (7) COVID-19: Code(s): U07.1 - COVID-19 Status: Acute Assessment and Plan: monitor vital signs Monitor clinical response Place patient in isolation (8) Hypokalemia: Code(s): E87.6 - Hypokalemia Status: Acute Assessment and Plan: monitor lab work (9) Acute metabolic encephalopathy: Code(s): G93.41 - Metabolic encephalopathy Status: Acute Assessment and Plan: appears resolved Monitor clinical response (10) Acute cystitis: Code(s): N30.00 - Acute cystitis without hematuria Status: Acute Assessment and Plan: urine culture returned positive for Enterococcus Antibiotic changed from Cipro to amoxicillin based on sensitivity Subjective Date/time seen: 10/08/22 1010 Review of Systems Review of Systems: Patient complains of feeling fatigued with a decreased appetite and a productive cough with clear phlegm. States she is feeling better than when she came in and is looking forward to going home. All systems reviewed & are unremarkable except as noted in HPI and below Constitutional: Constitutional: Reports fatigue and Reports lethargy Respiratory: Respiratory: Reports chest congestion and Reports cough (productive with clear phlegm) Exam Narrative: patient is lying in bed Wang's position and appears in no acute distress. Alert and oriented x4. Const: General: comfortable and no acute distress HENMT: Face/Nose/Sinus: Normal nares present Mouth: Yes moist mucous membranes Eyes: General: appearance normal, both eyes and all related structures Neck: Neck: supple and no JVD Resp: Effort & Inspection: normal respiratory effort Auscultation: clear to auscultation bilaterally Other: Patient appears in no acute respiratory distress. Able to speak in complete sentences without difficulty. No use of accessory muscles appreciated. Lung sounds are clear and equal bilaterally. Cardio: Rate: regular rate Rhythm: regular rhythm Other: Normal S1-S2 audible without any murmur, rub, gallop appreciated GI: Other: abdomen soft, nondistended, nontender to palpation with bowel sounds present x4 quadrants Skin: General skin exam: normal color and no rashes or lesions noted Neuro: Speech: normal speech Motor exam (neuro): Normal motor muscle tone present throughout Sensory Exam: normal sensation Extrem: General: normal to inspection Other: bilateral pedal and posterior tibial pulses palpated and equal without any edema noted Psych: Mental Status: mental status grossly normal Affect: normal affect Objective Data Vital Signs Vital Signs: Vital Signs - 24 hr 10/07/22 16:40 10/07/22 23:50 10/08/22 08:00 Temperature 96.9 F L 97.6 F 97.4 F L Pulse Rate 78 69 69 Respiratory Rate 16 16 16 Blood Pressure 141
[2022-10-08 16:00] VITALS: BP 140/72; PULSE 74; RESP 14; TEMP 36.4; O2SAT 94
[2022-10-08] MEDS: ATORVASTATIN 40 MG TABLET PO (20:48)
[2022-10-08] MEDS: ACETAMINOPHEN 325 MG TABLET 650 MG PO (20:49)
[2022-10-09] VITALS: BP 142/74; PULSE 67; RESP 16; TEMP 36.6; O2SAT 96
[2022-10-09] MEDS: LEVOTHYROXINE SODIUM 100 MCG TABLET PO (06:32)
[2022-10-09 08:00] VITALS: BP 137/75; PULSE 71; RESP 16; TEMP 36; O2SAT 94
[2022-10-09] MEDS: CITALOPRAM HYDROBROMIDE 20 MG TABLET PO (08:45)
[2022-10-09 08:46] VITALS: PULSE 71
[2022-10-09] MEDS: METOPROLOL TARTRATE 25 MG TABLET PO ×2 (08:46→20:37)
[2022-10-09] MEDS: ASPIRIN 81 MG ENTERIC TABLET PO (08:46)
[2022-10-09] MEDS: POTASSIUM CHLORIDE 20 MEQ TABLET PO (08:46)
[2022-10-09] MEDS: amLODIPine BESYLATE 2.5 MG TABLET PO (08:46)
[2022-10-09] MEDS: lisinopriL 10 MG TABLET PO (08:46)
[2022-10-09] MEDS: CLOPIDOGREL BISULFATE 75 MG TABLET PO (08:46)
[2022-10-09] MEDS: AMOXICILLIN 500 MG CAPSULE 1000 MG PO ×2 (08:47→20:36)
[2022-10-09] MEDS: rOPINIRole HCL 0.25 MG TABLET PO (08:47)
[2022-10-09] MEDS: CHOLECALCIFEROL 1,000 UNITS TABLET 2000 UNITS PO (08:47)
[2022-10-09 16:00] VITALS: BP 134/78; PULSE 78; RESP 16; TEMP 36.4; O2SAT 94
[2022-10-09 20:00] VITALS: PULSE 71; RESP 16; O2SAT 94
[2022-10-09 20:37] VITALS: PULSE 71
[2022-10-09] MEDS: traZODone HCL 50 MG TABLET PO (20:37)
[2022-10-09] MEDS: ATORVASTATIN 40 MG TABLET PO (20:37)
[2022-10-10] VITALS: BP 126/84; PULSE 71; RESP 16; TEMP 36.1; O2SAT 95
[2022-10-10] MEDS: ACETAMINOPHEN 325 MG TABLET 650 MG PO ×2 (02:45→23:27)
[2022-10-10] MEDS: LEVOTHYROXINE SODIUM 100 MCG TABLET PO (06:26)
[2022-10-10 08:00] VITALS: BP 128/77; PULSE 71; RESP 16; TEMP 36.4; O2SAT 97
[2022-10-10] MEDS: POTASSIUM CHLORIDE 20 MEQ TABLET PO (08:54)
[2022-10-10] MEDS: CHOLECALCIFEROL 1,000 UNITS TABLET 2000 UNITS PO (08:54)
[2022-10-10] MEDS: CITALOPRAM HYDROBROMIDE 20 MG TABLET PO (08:55)
[2022-10-10 08:56] VITALS: PULSE 71
[2022-10-10] MEDS: METOPROLOL TARTRATE 25 MG TABLET PO ×2 (08:56→20:42)
[2022-10-10] MEDS: amLODIPine BESYLATE 2.5 MG TABLET PO (08:56)
[2022-10-10] MEDS: lisinopriL 10 MG TABLET PO (08:57)
[2022-10-10] MEDS: ASPIRIN 81 MG ENTERIC TABLET PO (08:57)
[2022-10-10] MEDS: rOPINIRole HCL 0.25 MG TABLET PO (08:58)
[2022-10-10] MEDS: AMOXICILLIN 500 MG CAPSULE 1000 MG PO ×2 (08:58→20:43)
[2022-10-10] MEDS: CLOPIDOGREL BISULFATE 75 MG TABLET PO (09:34)
[2022-10-10 16:00] VITALS: BP 129/71; PULSE 71; RESP 16; TEMP 36.4; O2SAT 97
[2022-10-10 20:42] VITALS: PULSE 75
[2022-10-10] MEDS: traZODone HCL 50 MG TABLET PO (20:43)
[2022-10-10] MEDS: ATORVASTATIN 40 MG TABLET PO (20:43)
[2022-10-11] VITALS (7 sets, daily range): BP systolic 94–155; BP diastolic 48–87; PULSE 62–78; RESP 16–18; TEMP 35.9–36.3; O2SAT 92–97
--- NOTE | 2022-10-11 01:35 | PC.NURSE ---
Barby Márquez NP, notified of pt's low blood pressure; Orders received and noted.
--- NOTE | 2022-10-11 05:22 | PC.NURSE ---
Barbara Márquez NP, notified of pt's blood pressure. Staff was instructed to continue prescribed medications.
[2022-10-11 05:41] LABS: Basophils Absolute Auto 0.02 K/mm3 (0.00-0.10); Basophils Percent Auto 0.3 % (0.0-1.0); Eosinophils Absolute Auto 0.06 K/mm3 (0.02-0.50); Eosinophils Percent Auto 0.9 % (1.0-6.0); Hemoglobin 10.8 g/dL (11.7-13.8); Immature Granulocyte Absolute 0.07 K/mm3 (0.00-0.00); Immature Granulocyte Percent A 1.1 % (0.0-0.0); Lymphocytes Percent Auto 33.2 % (18.0-42.0); Mean Corpuscular HGB Conc 31.8 g/dL (32.0-36.0); Mean Corpuscular Hemoglobin 28.4 pg (27.0-31.0); Mean Corpuscular Volume 89.5 fL (78.0-102.0); Mean Platelet Volume 10.8 fl (9.2-11.8); Monocytes Absolute Auto 0.74 K/mm3 (0.10-0.90); Monocytes Percent Auto 11.7 % (2.0-11.0); Neutrophils Absolute Auto 3.3 K/mm3 (1.7-7.2); Neutrophils Percent Auto 52.8 % (50.0-70.0); Platelet Count Result 283 K/mm3 (150-420); Red Cell Distribution Width 13.5 % (11.6-14.4); White Blood Count 6.3 K/mm3 (4.8-10.8)
[2022-10-11 05:51] LABS: Anion Gap 5 mmol/L (8-16); Blood Urea Nitrogen 15 mg/dL (7-18); Calcium 8.9 mg/dL (8.5-10.1); Carbon Dioxide 31 mmol/L (21-32); Chloride 104 mmol/L (98-108); Estimated CRCL calculation 39 ml/min; Estimated Glomerular Filt Rate > 60; Glucose 92 mg/dL (70-99); Osmolality Calculated 290 mOsm/kg (285-295); Potassium 3.8 mmol/L (3.5-5.1); Sodium 140 mmol/L (136-145)
[2022-10-11] MEDS: LEVOTHYROXINE SODIUM 100 MCG TABLET PO (06:37)
[2022-10-11] MEDS: POTASSIUM CHLORIDE 20 MEQ TABLET PO (10:37)
[2022-10-11] MEDS: rOPINIRole HCL 0.25 MG TABLET PO (10:37)
[2022-10-11] MEDS: AMOXICILLIN 500 MG CAPSULE 1000 MG PO ×2 (10:37→20:46)
[2022-10-11] MEDS: lisinopriL 10 MG TABLET PO (10:38)
[2022-10-11] MEDS: METOPROLOL TARTRATE 25 MG TABLET PO ×2 (10:38→20:45)
[2022-10-11] MEDS: amLODIPine BESYLATE 2.5 MG TABLET PO (10:38)
[2022-10-11] MEDS: CLOPIDOGREL BISULFATE 75 MG TABLET PO (10:38)
[2022-10-11] MEDS: ASPIRIN 81 MG ENTERIC TABLET PO (10:38)
[2022-10-11] MEDS: CHOLECALCIFEROL 1,000 UNITS TABLET 2000 UNITS PO (10:38)
[2022-10-11] MEDS: CITALOPRAM HYDROBROMIDE 20 MG TABLET PO (10:38)
[2022-10-11] MEDS: ATORVASTATIN 40 MG TABLET PO (20:45)
[2022-10-11] MEDS: traZODone HCL 50 MG TABLET PO (20:45)
[2022-10-12] MEDS: LEVOTHYROXINE SODIUM 100 MCG TABLET PO (06:14)
[2022-10-12 08:00] VITALS: BP 141/81; PULSE 76; RESP 17; TEMP 35.9; O2SAT 97
[2022-10-12] MEDS: rOPINIRole HCL 0.25 MG TABLET PO (09:38)
[2022-10-12] MEDS: AMOXICILLIN 500 MG CAPSULE 1000 MG PO ×2 (09:39→20:35)
[2022-10-12 09:40] VITALS: PULSE 74
[2022-10-12] MEDS: lisinopriL 10 MG TABLET PO (09:40)
[2022-10-12] MEDS: CHOLECALCIFEROL 1,000 UNITS TABLET 2000 UNITS PO (09:40)
[2022-10-12] MEDS: POTASSIUM CHLORIDE 20 MEQ TABLET PO (09:40)
[2022-10-12] MEDS: ASPIRIN 81 MG ENTERIC TABLET PO (09:40)
[2022-10-12] MEDS: METOPROLOL TARTRATE 25 MG TABLET PO ×2 (09:40→20:35)
[2022-10-12] MEDS: amLODIPine BESYLATE 2.5 MG TABLET PO (09:40)
[2022-10-12] MEDS: CITALOPRAM HYDROBROMIDE 20 MG TABLET PO (09:40)
[2022-10-12] MEDS: CLOPIDOGREL BISULFATE 75 MG TABLET PO (09:40)
[2022-10-12 16:00] VITALS: BP 119/45; PULSE 72; RESP 15; TEMP 36.1; O2SAT 96
[2022-10-12 20:35] VITALS: PULSE 74
[2022-10-12] MEDS: ATORVASTATIN 40 MG TABLET PO (20:35)
[2022-10-12] MEDS: ACETAMINOPHEN 325 MG TABLET 650 MG PO (20:36)
[2022-10-12] MEDS: traZODone HCL 50 MG TABLET PO (20:36)
[2022-10-13] VITALS: BP 118/68; PULSE 78; RESP 16; TEMP 36; O2SAT 94
[2022-10-13] MEDS: LEVOTHYROXINE SODIUM 100 MCG TABLET PO (05:46)
[2022-10-13 07:26] VITALS: BP 133/63; PULSE 66; RESP 16; TEMP 35.9; O2SAT 94
[2022-10-13] MEDS: CITALOPRAM HYDROBROMIDE 20 MG TABLET PO (08:14)
[2022-10-13] MEDS: CHOLECALCIFEROL 1,000 UNITS TABLET 2000 UNITS PO (08:14)
[2022-10-13] MEDS: rOPINIRole HCL 0.25 MG TABLET PO (08:14)
[2022-10-13 08:15] VITALS: PULSE 66
[2022-10-13] MEDS: ASPIRIN 81 MG ENTERIC TABLET PO (08:15)
[2022-10-13] MEDS: lisinopriL 10 MG TABLET PO (08:15)
[2022-10-13] MEDS: METOPROLOL TARTRATE 25 MG TABLET PO ×2 (08:15→20:23)
[2022-10-13] MEDS: CLOPIDOGREL BISULFATE 75 MG TABLET PO (08:16)
[2022-10-13] MEDS: amLODIPine BESYLATE 2.5 MG TABLET PO (08:16)
[2022-10-13] MEDS: POTASSIUM CHLORIDE 20 MEQ TABLET PO (08:16)
[2022-10-13] MEDS: AMOXICILLIN 500 MG CAPSULE 1000 MG PO ×2 (08:23→20:22)
[2022-10-13 16:00] VITALS: BP 131/68; PULSE 76; RESP 16; TEMP 36.3; O2SAT 96
[2022-10-13 20:00] VITALS: PULSE 76; RESP 16; O2SAT 96
[2022-10-13 20:23] VITALS: PULSE 79
[2022-10-13] MEDS: traZODone HCL 50 MG TABLET PO (20:23)
[2022-10-13] MEDS: ATORVASTATIN 40 MG TABLET PO (20:23)
[2022-10-13] MEDS: ACETAMINOPHEN 325 MG TABLET 650 MG PO (20:24)
[2022-10-14] VITALS: BP 114/61; PULSE 79; RESP 16; TEMP 36.3; O2SAT 95
[2022-10-14] MEDS: LEVOTHYROXINE SODIUM 100 MCG TABLET PO (05:33)
[2022-10-14 07:32] VITALS: BP 148/75; PULSE 74; RESP 16; TEMP 35.8; O2SAT 95
[2022-10-14] MEDS: AMOXICILLIN 500 MG CAPSULE 1000 MG PO ×2 (08:11→20:39)
[2022-10-14] MEDS: ASPIRIN 81 MG ENTERIC TABLET PO (08:12)
[2022-10-14] MEDS: rOPINIRole HCL 0.25 MG TABLET PO (08:12)
[2022-10-14 08:13] VITALS: PULSE 78
[2022-10-14] MEDS: lisinopriL 10 MG TABLET PO (08:13)
[2022-10-14] MEDS: METOPROLOL TARTRATE 25 MG TABLET PO ×2 (08:13→20:39)
[2022-10-14] MEDS: CITALOPRAM HYDROBROMIDE 20 MG TABLET PO (08:13)
[2022-10-14] MEDS: CLOPIDOGREL BISULFATE 75 MG TABLET PO (08:14)
[2022-10-14] MEDS: amLODIPine BESYLATE 2.5 MG TABLET PO (08:14)
[2022-10-14] MEDS: CHOLECALCIFEROL 1,000 UNITS TABLET 2000 UNITS PO (08:14)
[2022-10-14] MEDS: POTASSIUM CHLORIDE 20 MEQ TABLET PO (08:17)
[2022-10-14] MEDS: ACETAMINOPHEN 325 MG TABLET 650 MG PO (10:38)
[2022-10-14 16:00] VITALS: BP 101/61; PULSE 74; RESP 16; TEMP 36; O2SAT 96
[2022-10-14 20:00] VITALS: PULSE 74; RESP 16; O2SAT 96
[2022-10-14 20:39] VITALS: PULSE 74
[2022-10-14] MEDS: ATORVASTATIN 40 MG TABLET PO (20:39)
[2022-10-14] MEDS: traZODone HCL 50 MG TABLET PO (20:39)
[2022-10-15] VITALS: BP 113/59; PULSE 74; RESP 16; TEMP 36.2; O2SAT 94
[2022-10-15] MEDS: LEVOTHYROXINE SODIUM 100 MCG TABLET PO (06:31)
[2022-10-15 08:00] VITALS: BP 115/60; PULSE 76; RESP 14; TEMP 36.4; O2SAT 94
[2022-10-15] MEDS: CHOLECALCIFEROL 1,000 UNITS TABLET 2000 UNITS PO (09:40)
[2022-10-15 09:41] VITALS: PULSE 72
[2022-10-15] MEDS: ASPIRIN 81 MG ENTERIC TABLET PO (09:41)
[2022-10-15] MEDS: METOPROLOL TARTRATE 25 MG TABLET PO ×2 (09:41→20:21)
[2022-10-15] MEDS: CLOPIDOGREL BISULFATE 75 MG TABLET PO (09:41)
[2022-10-15] MEDS: CITALOPRAM HYDROBROMIDE 20 MG TABLET PO (09:41)
[2022-10-15] MEDS: lisinopriL 10 MG TABLET PO (09:42)
[2022-10-15] MEDS: rOPINIRole HCL 0.25 MG TABLET PO (09:42)
[2022-10-15] MEDS: POTASSIUM CHLORIDE 20 MEQ TABLET PO (09:42)
[2022-10-15] MEDS: amLODIPine BESYLATE 2.5 MG TABLET PO (09:42)
--- NOTE | 2022-10-15 13:02 | PC.NURSE ---
activity documentation at 1300 was for another pt. This pt does not walk with a cane. She transfers to the [facility] and chair using the pat steady, gait belt and 1 - 2 people.
[2022-10-15 16:40] VITALS: BP 146/76; PULSE 74; RESP 18; TEMP 35.6; O2SAT 97
[2022-10-15 20:21] VITALS: PULSE 70
[2022-10-15] MEDS: traZODone HCL 50 MG TABLET PO (20:21)
[2022-10-15] MEDS: ATORVASTATIN 40 MG TABLET PO (20:21)
[2022-10-15] MEDS: ACETAMINOPHEN 325 MG TABLET 650 MG PO (20:22)
[2022-10-15 23:48] VITALS: BP 121/58; PULSE 77; RESP 16; TEMP 36.1; O2SAT 95
[2022-10-16] MEDS: LEVOTHYROXINE SODIUM 100 MCG TABLET PO (05:39)
[2022-10-16 08:00] VITALS: BP 101/56; PULSE 73; RESP 14; TEMP 36.6; O2SAT 99
[2022-10-16] MEDS: CHOLECALCIFEROL 1,000 UNITS TABLET 2000 UNITS PO (08:57)
[2022-10-16 08:58] VITALS: PULSE 73
[2022-10-16] MEDS: amLODIPine BESYLATE 2.5 MG TABLET PO (08:58)
[2022-10-16] MEDS: POTASSIUM CHLORIDE 20 MEQ TABLET PO (08:58)
[2022-10-16] MEDS: METOPROLOL TARTRATE 25 MG TABLET PO ×2 (08:58→20:40)
[2022-10-16] MEDS: CLOPIDOGREL BISULFATE 75 MG TABLET PO (08:59)
[2022-10-16] MEDS: ASPIRIN 81 MG ENTERIC TABLET PO (08:59)
[2022-10-16] MEDS: CITALOPRAM HYDROBROMIDE 20 MG TABLET PO (08:59)
[2022-10-16] MEDS: rOPINIRole HCL 0.25 MG TABLET PO (08:59)
[2022-10-16] MEDS: lisinopriL 10 MG TABLET PO (09:16)
[2022-10-16 16:30] VITALS: BP 110/56; PULSE 75; RESP 18; TEMP 36.3; O2SAT 96
[2022-10-16 20:40] VITALS: PULSE 78
[2022-10-16] MEDS: traZODone HCL 50 MG TABLET PO (20:41)
[2022-10-16] MEDS: ATORVASTATIN 40 MG TABLET PO (20:41)
[2022-10-16] MEDS: ACETAMINOPHEN 325 MG TABLET 650 MG PO (20:41)
[2022-10-16 23:28] VITALS: BP 103/62; PULSE 80; RESP 18; TEMP 36.1; O2SAT 93
--- NOTE | 2022-10-17 05:29 | PM.DS ---
DS: Admitting Diagnosis Discharge Date 10/17/2022 Admitting Diagnosis rehab/weakness DS: Discharge Diagnosis Discharge Diagnosis (1) Weakness: Code(s): R53.1 - Weakness Status: Acute Assessment and Plan: patient will discharge to SNF. 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): Code(s): I63.9 - Cerebral infarction, unspecified; G83.9 - Paralytic syndrome, unspecified Status: Acute Assessment and Plan: continue physical therapy occupational therapy (5) Hypothyroidism: Code(s): E03.9 - Hypothyroidism, unspecified Status: Acute Assessment and Plan: stable continue home medication (6) Hypertension: Code(s): I10 - Essential (primary) hypertension Status: Acute Assessment and Plan: stable continue home medication (7) COVID-19: Code(s): U07.1 - COVID-19 Status: Acute Assessment and Plan: patient asymptomatic continue supportive care DS: Summary Hospital Course Reason for hospitalization: rehab/weakness Hospital Course: this is a 87-year-old female that presented to [facility] due to a fever.? Patient tested positive for COVID.? It was determined by Physical therapy/Occupational? therapy did patient will benefit from rehab.? patient does not appear to be in any distress. The patient denies SOB, CP, palpitation, extremity numbness, lightheadedness, dizziness, constipation, diarrhea, chills, or fever. She will discharge to a long-term facility Time Spent with Patient Time attestation: Total time spent providing and/or coordinating discharge services: Exam Narrative: GENERAL: frail elderly female, in no apparent distress. HEAD: normocephalic, atraumatic. EYES: PERRL. Sclera clear/white. Vision is grossly intact. EARS: External ears normal, auditory canals clear and without drainage, TMs normal without perforation. Hearing grossly intact. NOSE: External nose normal with no obvious nasal discharge, nares without redness, no rhinorrhea. THROAT: Mucous membranes moist, posterior pharynx clear. NECK: Neck supple, non-tender without lymphadenopathy, masses or thyromegaly. CARDIOVASCULAR: Regular rate and rhythm without murmurs, gallops, or rubs. RESPIRATORY: Clear to auscultation. Breath sounds equal bilaterally. No wheezes, rales, or rhonchi. GASTROINTESTINAL: Abdomen soft, non-tender, nondistended. Bowel sounds are active. No hepato-splenomegaly, or palpable masses. No guarding. SKIN: warm, intact with no suspicious lesions or rash, good texture and turgor. NEURO: awake, alert, There were no obvious focal neurologic abnormalities. EXTREMITIES: Normal range of motion. No edema. No calf tenderness. Const: General: comfortable and no acute distress HENMT: Face/Nose/Sinus: Normal nares present Mouth: Yes moist mucous membranes Eyes: General: appearance normal, both eyes and all related structures Neck: Neck: supple and no JVD Resp: Effort & Inspection: normal respiratory effort Auscultation: clear to auscultation bilaterally Other: Patient appears in no acute respiratory distress. Able to speak in complete sentences without difficulty. No use of accessory muscles appreciated. Lung sounds are clear and equal bilaterally. Cardio: Rate: regular rate Rhythm: regular rhythm Other: Normal S1-S2 audible without any murmur, rub, gallop appreciated GI: Other: abdomen soft, nondistended, nontender to palpation with bowel sounds present x4 quadrants Skin: General skin exam: normal color and no rashes or lesions noted Neuro: Speech: normal speech Motor exam (ne
[2022-10-17] MEDS: LEVOTHYROXINE SODIUM 100 MCG TABLET PO (05:46)
[2022-10-17 08:00] VITALS: BP 110/60; PULSE 80; RESP 16; TEMP 36.6
[2022-10-17] MEDS: ACETAMINOPHEN 325 MG TABLET 650 MG PO (09:05)
[2022-10-17] MEDS: lisinopriL 10 MG TABLET PO (09:06)
[2022-10-17] MEDS: POTASSIUM CHLORIDE 20 MEQ TABLET PO (09:06)
[2022-10-17] MEDS: CHOLECALCIFEROL 1,000 UNITS TABLET 2000 UNITS PO (09:07)
[2022-10-17] MEDS: amLODIPine BESYLATE 2.5 MG TABLET PO (09:07)
[2022-10-17] MEDS: rOPINIRole HCL 0.25 MG TABLET PO (09:08)
[2022-10-17] MEDS: ASPIRIN 81 MG ENTERIC TABLET PO (09:08)
[2022-10-17] MEDS: CITALOPRAM HYDROBROMIDE 20 MG TABLET PO (09:08)
[2022-10-17] MEDS: CLOPIDOGREL BISULFATE 75 MG TABLET PO (09:08)
[2022-10-17 09:09] VITALS: PULSE 78
[2022-10-17] MEDS: METOPROLOL TARTRATE 25 MG TABLET PO ×2 (09:09→20:50)
[2022-10-17 16:00] VITALS: BP 144/76; PULSE 71; RESP 16; TEMP 36.3; O2SAT 96
[2022-10-17 20:50] VITALS: PULSE 71
[2022-10-17] MEDS: ATORVASTATIN 40 MG TABLET PO (20:50)
[2022-10-17] MEDS: traZODone HCL 50 MG TABLET PO (20:50)
[2022-10-18] VITALS: BP 135/78; PULSE 70; RESP 16; TEMP 36; O2SAT 97
[2022-10-18] MEDS: LEVOTHYROXINE SODIUM 100 MCG TABLET PO (06:40)
[2022-10-18 08:00] VITALS: BP 160/84; PULSE 78; RESP 18; TEMP 36.6; O2SAT 96
[2022-10-18 08:18] VITALS: PULSE 86
[2022-10-18] MEDS: CITALOPRAM HYDROBROMIDE 20 MG TABLET PO (08:18)
[2022-10-18] MEDS: METOPROLOL TARTRATE 25 MG TABLET PO (08:18)
[2022-10-18] MEDS: lisinopriL 10 MG TABLET PO (08:18)
[2022-10-18] MEDS: CHOLECALCIFEROL 1,000 UNITS TABLET 2000 UNITS PO (08:18)
[2022-10-18] MEDS: amLODIPine BESYLATE 2.5 MG TABLET PO (08:19)
[2022-10-18] MEDS: CLOPIDOGREL BISULFATE 75 MG TABLET PO (08:19)
[2022-10-18] MEDS: ASPIRIN 81 MG ENTERIC TABLET PO (08:19)
[2022-10-18] MEDS: rOPINIRole HCL 0.25 MG TABLET PO (08:19)
--- NOTE | 2022-10-18 13:27 | PC.NURSE ---
1200 dc to [facility]. 2 nurses and pat negrete. report was called to cassie.
--- NOTE | 2022-10-19 15:16 | PC.NURSE ---
[facility] nurse states they received and understood the discharge instructions.
--- NOTE | 2023-01-31 09:27 | WPDPN ---
Progress Note: A&P Assessment and Plan (1) Weakness: Code(s): R53.1 - Weakness Status: Acute Assessment and Plan: patient will discharge to SNF. 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): Code(s): I63.9 - Cerebral infarction, unspecified; G83.9 - Paralytic syndrome, unspecified Status: Acute Assessment and Plan: continue physical therapy occupational therapy (5) Hypothyroidism: Code(s): E03.9 - Hypothyroidism, unspecified Status: Acute Assessment and Plan: stable continue home medication (6) Hypertension: Code(s): I10 - Essential (primary) hypertension Status: Acute Assessment and Plan: stable continue home medication (7) COVID-19: Code(s): U07.1 - COVID-19 Status: Acute Assessment and Plan: patient asymptomatic continue supportive care Subjective Date/time seen: 10/15/2022 Review of Systems Review of Systems: All systems reviewed & are unremarkable except as noted in HPI and below Exam Narrative: GENERAL: frail elderly female, in no apparent distress. HEAD: normocephalic, atraumatic. EYES: PERRL. Sclera clear/white. Vision is grossly intact. EARS: External ears normal, auditory canals clear and without drainage, TMs normal without perforation. Hearing grossly intact. NOSE: External nose normal with no obvious nasal discharge, nares without redness, no rhinorrhea. THROAT: Mucous membranes moist, posterior pharynx clear. NECK: Neck supple, non-tender without lymphadenopathy, masses or thyromegaly. CARDIOVASCULAR: Regular rate and rhythm without murmurs, gallops, or rubs. RESPIRATORY: Clear to auscultation. Breath sounds equal bilaterally. No wheezes, rales, or rhonchi. GASTROINTESTINAL: Abdomen soft, non-tender, nondistended. Bowel sounds are active. No hepato-splenomegaly, or palpable masses. No guarding. SKIN: warm, intact with no suspicious lesions or rash, good texture and turgor. NEURO: awake, alert, There were no obvious focal neurologic abnormalities. EXTREMITIES: Normal range of motion. No edema. No calf tenderness. Const: General: comfortable and no acute distress HENMT: Face/Nose/Sinus: Normal nares present Mouth: Yes moist mucous membranes Eyes: General: appearance normal, both eyes and all related structures Neck: Neck: supple and no JVD Resp: Effort & Inspection: normal respiratory effort Auscultation: clear to auscultation bilaterally Other: Patient appears in no acute respiratory distress. Able to speak in complete sentences without difficulty. No use of accessory muscles appreciated. Lung sounds are clear and equal bilaterally. Cardio: Rate: regular rate Rhythm: regular rhythm Other: Normal S1-S2 audible without any murmur, rub, gallop appreciated GI: Other: abdomen soft, nondistended, nontender to palpation with bowel sounds present x4 quadrants Skin: General skin exam: normal color and no rashes or lesions noted Neuro: Speech: normal speech Motor exam (neuro): Normal motor muscle tone present throughout Sensory Exam: normal sensation Extrem: General: normal to inspection Other: bilateral pedal and posterior tibial pulses palpated and equal without any edema noted Psych: Mental Status: mental status grossly normal Affect: normal affect Objective Data Meds/Results Radiology Results: ITS Impressions Chest X-Ray 10/04/22 09:26 IMPRESSION: 1. 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
== END 2022-10-18 12:00 | DRG 947 ==
PROVIDERS: Nurse Practitioner; Nurse Practitioner Family; Admitting Provider Internal Medicine; PCP Nurse Practitioner Family; Visit Provider Internal Medicine
DX: R53.1 Weakness (principal); G93.41 Metabolic encephalopathy; U07.1 COVID-19; N39.0 Urinary tract infection, site not specified; I69.354 Hemiplegia and hemiparesis following cerebral infarction affecting left non-dominant side; I10 Essential (primary) hypertension; E78.5 Hyperlipidemia, unspecified; E03.9 Hypothyroidism, unspecified; B95.2 Enterococcus as the cause of diseases classified elsewhere; F41.9 Anxiety disorder, unspecified; F32.A Depression, unspecified; Z79.82 Long term (current) use of aspirin; Z79.02 Long term (current) use of antithrombotics/antiplatelets
CPT/HCPCS: 36415; 71045; 80048; 80053; 81001; 85025; 87077; 87086; 87088; 87186; 97110; 97161; 97165; 97530; 97535; A9270